=== PATIENT | female | born 2005 | race Caucasian/White ===

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

== ENCOUNTER 2024-04-22 13:17 | Emergency (ER) | payer MEDICAID ==
[~2024-04-22] VITALS: Ht 162.6 cm; Wt 72.6 kg
[~2024-04-22 13:17] MED LIST changes: +ONDA4TAB50 MT; +PANT40SU MT; +TOPUD MT
[2024-04-22 13:19] VITALS: TEMP 98.2; O2SAT 100
[2024-04-22 15:45] LABS: CLARITY URINE CLEAR (CLEAR); COLOR URINE YELLOW (YELLOW); GLUCOSE URINE NEGATIVE (NEGATIVE); KETONES URINE NEGATIVE (NEGATIVE); LEUKOCYTE ESTERASE URINE 2+ (NEGATIVE); NITRITE URINE NEGATIVE (NEGATIVE); OCCULT BLOOD URINE 1+ (NEGATIVE); PROTEIN URINE 1+ (NEGATIVE); SPECIFIC GRAVITY URINE 1.007 (1.005-1.030)
[2024-04-22] MEDS: KETOROLAC 30MG/ML VIAL IM ONE (16:07)
[2024-04-22 16:25] LABS: BACTERIA URINE 1+; SQUAMOUS EPITHELIAL CELL URINE 1+ /lpf (RARE/1+); WBC URINE 15-25 /hpf (0-2)
[2024-04-22 16:55] LABS: BASOPHILS % 0.3 % (0.0-2.0); HEMATOCRIT. 40.1 % (36.0-48.0); HEMOGLOBIN. 13.3 g/dL (12.0-16.0); LYMPHOCYTES % 8.2 % (20.0-50.0); MEAN CORPUSCULAR HEMOGLOBIN 29.1 pg (28.0-32.0); MEAN CORPUSCULAR HGB CONC 33.2 g/dL (31.0-37.0); MEAN CORPUSCULAR VOLUME 87.6 fL (81.0-99.0); MEAN PLATELET VOLUME 9.5 fl (7.4-10.4); MONOCYTES % 6.3 % (2.0-8.0); NEUTROPHILS % 84.2 % (40.0-76.0); PLATELET 194 x1000/uL (130-400); RED BLOOD CELL COUNT 4.58 mill/uL (4.2-5.4); RED CELL DISTRIBUTION WIDTH 14.2 % (11.6-14.6); WHITE BLOOD COUNT 13.4 x1000/uL (4.5-11.0)
[2024-04-22 17:00] LABS: CHLORIDE 104 mEq/L (98-107); POTASSIUM 3.4 mEq/L (3.5-5.1); SODIUM 137 mEq/L (136-145)
[2024-04-22 17:01] LABS: CALCIUM 9.4 mg/dL (8.7-10.4); CARBON DIOXIDE 24 mEq/L (21-32)
[2024-04-22 17:06] LABS: CREATININE 0.8 mg/dL (0.6-1.0); GLUCOSE 93 mg/dL (70-105); UREA NITROGEN BLOOD 10 mg/dL (9-23)
[2024-04-22 17:09] LABS: PROTHROMBIN TIME 11.4 sec (9.6-11.0)
[2024-04-22] MEDS ORDERED: SULF1TAB48 MT (18:07)
[2024-04-22] MEDS ORDERED: ACET-2708 MT (18:07)
[2024-04-22] MEDS: CEFTRIAXONE SODIUM 1G VIAL IM ONE (18:38)
[2024-04-22 18:42] VITALS: BP 114/66; PULSE 68; RESP 16; O2SAT 97
== END 2024-04-22 18:44 | disposition home or self-care (01) ==
LOC: ER 13:24
DX: N12 Tubulo-interstitial nephritis, not specified as acute or chronic (principal); J45.909 Unspecified asthma, uncomplicated; Z91.010 Allergy to peanuts; Z79.899 Other long term (current) drug therapy
CPT/HCPCS: 80048; 81003; 81025; 83690; 85025; 85610; 87086; 87186; 87077; 36415; 74176; 96372; 99285; J0696; J1885; Z7610

== ENCOUNTER 2025-04-03 14:36 | Emergency (ER) | payer MEDICAID ==
[~2025-04-03] VITALS: Ht 165.1 cm; Wt 78.0 kg
[~2025-04-03 14:36] MED LIST changes: +ACET-2708 MT; +IBUP-1455 MT; -IBUP-2029 MT; +SULF1TAB48 MT
[2025-04-03 14:38] VITALS: O2SAT 100
[2025-04-03] MEDS: ONDANSETRON HCL 4MG/2ML INJ IV ONE ×2 (15:18→21:05)
[2025-04-03] MEDS: SODIUM CHLORIDE 0.9% 1,000 ML IV ONE (15:18)
[2025-04-03] MEDS: KETOROLAC 15MG/ML VIAL IV ONE (15:19)
[2025-04-03 15:39] LABS: BASOPHILS % 0.7 % (0.0-2.0); EOSINOPHILS % 2.3 % (0.0-5.0); HEMATOCRIT. 24.8 % (36.0-48.0); HEMOGLOBIN. 8.3 g/dL (12.0-16.0); LYMPHOCYTES % 11.6 % (20.0-50.0); MEAN PLATELET VOLUME 8.9 fl (7.4-10.4); MONOCYTES % 9.1 % (2.0-8.0); NEUTROPHILS % 76.3 % (40.0-76.0); PLATELET 319 x1000/uL (130-400); RED BLOOD CELL COUNT 2.97 mill/uL (4.2-5.4); RED CELL DISTRIBUTION WIDTH 16.0 % (11.6-14.6)
[2025-04-03 15:51] LABS: CREATININE 0.6 mg/dL (0.6-1.0); UREA NITROGEN BLOOD < 5 mg/dL (9-23)
[2025-04-03 15:52] LABS: TROPONIN I HIGH SENSITIVITY < 4 ng/L (3.0-34)
[2025-04-03 15:53] LABS: ASPARTATE AMINOTRANSFERASE 326 IU/L (<34); BILIRUBIN DIRECT 1.8 mg/dL (<=3.0); BILIRUBIN TOTAL 2.7 mg/dL (0.1-1.0); PROTEIN TOTAL 6.4 g/dL (6.0-8.3)
[2025-04-03 17:06] LABS: HCG SCREEN NEGATIVE
[2025-04-03] MEDS: MORPHINE SULFATE 4 MG/ML INJ (FOR IV/IM USE) IV ONE ×2 (17:46→21:06)
[2025-04-03 19:07] LABS: GLUCOSE URINE NEGATIVE (NEGATIVE); KETONES URINE 3+ (NEGATIVE); LEUKOCYTE ESTERASE URINE 1+ (NEGATIVE); NITRITE URINE NEGATIVE (NEGATIVE); OCCULT BLOOD URINE NEGATIVE (NEGATIVE); PH URINE 6.5 (4.5-8.0); PROTEIN URINE NEGATIVE (NEGATIVE); SPECIFIC GRAVITY URINE 1.013 (1.005-1.030); UROBILINOGEN URINE 2.0 E.U./dL (0.2-1.0)
[2025-04-03 19:09] LABS: *AMPHETAMINES SCREEN URINE NEGATIVE (NEGATIVE); *BARBITURATES SCREEN URINE NEGATIVE (NEGATIVE); *BENZODIAZEPINES SCREEN URINE NEGATIVE (NEGATIVE); *COCAINE SCREEN URINE NEGATIVE (NEGATIVE); METHADONE URINE SCREEN NEGATIVE (NEGATIVE); OPIATES URINE SCREEN PRESUMPTIVE POSITIVE (NEGATIVE); PHENCYCLIDINE URINE SCREEN NEGATIVE (NEGATIVE)
[2025-04-03 19:10] LABS: CANNABINOID URINE SCREEN PRESUMPTIVE POSITIVE (NEGATIVE); ECSTASY MDMA SCREEN URINE NEGATIVE (NEGATIVE)
[2025-04-03 19:41] LABS: COLOR URINE YELLOW (YELLOW)
[2025-04-03 19:42] LABS: CLARITY URINE SL HAZY (CLEAR)
[2025-04-03 19:56] LABS: RBC URINE NONE SEEN /hpf (0-2)
[2025-04-03 19:57] LABS: BACTERIA URINE TRACE; SQUAMOUS EPITHELIAL CELL URINE 2+ /lpf (RARE/1+)
[2025-04-03] MEDS: CEFTRIAXONE 2GM/50ML 50 ML IV ONE (21:06)
[2025-04-03] MEDS: METRONIDAZOLE 500 MG PREMIX 100 ML IV ONE (21:51)
[2025-04-04 01:37] VITALS: BP 125/84; PULSE 71; RESP 18; TEMP 37.2; O2SAT 99
== END 2025-04-04 02:00 | disposition short-term general hospital (02) ==
LOC: ER 14:56 → CMPBEDREQ 04-04 09:01
DX: K85.10 Biliary acute pancreatitis without necrosis or infection (principal); K83.09 Other cholangitis; I11.0 Hypertensive heart disease with heart failure; J45.909 Unspecified asthma, uncomplicated; Z91.010 Allergy to peanuts; Z90.49 Acquired absence of other specified parts of digestive tract; Z79.899 Other long term (current) drug therapy
CPT/HCPCS: 80076; 80305; 80048; 81003; 80320; 84703; 83880; 83690; 83735; 85025; 84484; 36415; 71045; 74176; 76705; 93005; 96367; 96361; 96365; 96375; 96376; 99291; J0696; J1885; J3490; J2405; J2270; J7030; Z7610; G0480